=== PATIENT | female | born 1935 | race Caucasian/White ===

== ENCOUNTER 2018-04-09 13:14 | Inpatient (IN) | payer MEDICARE, OTHER ==
[~2018-04-09] VITALS: Ht 165.1 cm; Wt 85.0 kg
[~2018-04-09 13:14] MED LIST: ACET-1008 PO; ATE25T PO; ATOR10TA87 PO; CALC-729 PO; CARCD120C PO; CITA-278 PO; COL100C PO; CYAN50003 PO; DIPH-423 PO; ENOX30SY10 SUBCUT; LEVO25TA7 PO; LORA0.5T PO; MAG355OR PO; MAGN-49 PO; MULT-685 PO; NORCO10T PO; PRED1TAB PO; ZOF4I IV; ZOLP5TAB8 PO; [UNRECOGNIZED DRUG - REMARK] MC
[2018-04-09] MEDS ORDERED: normal saline 1000ML IV soln IVB ONE ×2 (13:30→13:40)
[2018-04-09] MEDS ORDERED: morphine 4 MG/ML inj SYRINge IV PRN (13:40)
[2018-04-09] MEDS ORDERED: ondansetron/PF 4mg/2ml inj IV ONE (13:40)
[2018-04-09 13:46] LABS: BASOPHILS % (AUTO) 0.3 % (0-1); EOSINOPHILS # (AUTO) 0.4 X10'3 (0-0.9); EOSINOPHILS % (AUTO) 4.2 % (0-6); HEMATOCRIT 30.9 % (35.0-45.0); HEMOGLOBIN 9.5 g/dl (12.0-16.0); LYMPHOCYTES # (AUTO) 1.9 X10'3 (1.1-4.8); LYMPHOCYTES % (AUTO) 17.2 % (21-51); MEAN CORPUSCULAR HEMOGLOBIN 24.6 PG (27.0-31.0); MEAN CORPUSCULAR HGB CONC 30.7 % (33.0-36.5); MEAN CORPUSCULAR VOLUME 80.3 FL (78-98); MEAN PLATELET VOLUME 9.3 FL (7.4-10.4); MONOCYTES # (AUTO) 1.2 X10'3 (0-0.9); MONOCYTES % (AUTO) 10.7 % (2-12); NEUTROPHILS # (AUTO) 7.3 X10'3 (1.8-7.7); NEUTROPHILS % (AUTO) 67.6 % (42-75); PLATELET COUNT 242 X10'3 (140-440); RED BLOOD COUNT 3.85 X10'6 (4.20-5.60); RED CELL DISTRIBUTION WIDTH 21.3 % (11.5-14.5); WHITE BLOOD COUNT 10.8 X10'3 (4.5-11.0)
[2018-04-09 14:05] LABS: ALANINE AMINOTRANSFERASE 24 U/L (12-78); ALBUMIN/GLOBULIN RATIO 0.7 (1.1-1.5); ALKALINE PHOSPHATASE 57 IU/L (46-116); ANION GAP 6 (8-16); ASPARTATE AMINO TRANSFERASE 22 U/L (10-37); BILIRUBIN,TOTAL 0.6 MG/DL (0.1-1.0); BLOOD UREA NITROGEN 29 MG/DL (7-18); BUN/CREATININE RATIO 21.8 (6.6-38.0); CALCIUM 8.8 MG/DL (8.5-10.1); CHLORIDE 104 MMOL/L (99-107); CREATININE 1.33 MG/DL (0.40-0.90); GLUCOSE 152 MG/DL (70-104); POTASSIUM 4.4 MMOL/L (3.5-5.1); SODIUM 140 MMOL/L (135-145); TOTAL CARBON DIOXIDE 29.9 MMOL/L (24-32); TOTAL PROTEIN 7.1 G/DL (6.4-8.2); eGFR 38 ML/MIN
[2018-04-09 14:07] LABS: INR 1.2 INR; PARTIAL THROMBOPLASTIN TIME 32 SECONDS (22-32); PROTHROMBIN TIME 12.5 SECONDS (9.0-12.0)
[2018-04-09 14:13] LABS: PLATELET ESTIMATE NORMAL
[2018-04-09 14:14] LABS: ANISOCYTOSIS 3+; HYPOCHROMASIA 1+
[2018-04-09 14:15] LABS: POLYCHROMASIA 1+
[2018-04-09] MEDS ORDERED: HYDROcodone/acetaminophen 10/325mg tab PO ONE (14:30)
[2018-04-09] MEDS ORDERED: acetaminophen 325mg tablet PO PRN ×2 (15:10)
[2018-04-09] MEDS ORDERED: magnesium hydroxide 30ml (MOM) UD suspension PO PRN (15:10)
[2018-04-09] MEDS ORDERED: ondansetron/PF 4mg/2ml inj IV PRN (15:10)
[2018-04-09] MEDS ORDERED: HYDROcodone/acetaminophen 5mg/325mg tablet PO PRN (15:10)
[2018-04-09] MEDS ORDERED: mag hydrox/Alum hydrox/simeth 30ml oral suspension PO PRN (15:10)
[2018-04-09 15:21] LABS: CLARITY,URINE SLIGHTLY CLOUDY (Clear); COLOR,URINE STRAW (Yellow); GLUCOSE, URINE NEGATIVE (Neg); KETONES,URINE NEGATIVE (Neg); LEUKOCYTE ESTERASE ,URINE NEGATIVE (Neg); NITRITES, URINE NEGATIVE (Neg); OCCULT BLOOD,URINE NEGATIVE (Neg); PROTEIN,URINE NEGATIVE (Neg); UROBILINOGEN,URINE 0.2 E.U/dL (0.2-1.0)
[2018-04-09 15:22] LABS: UA COLLECTION TYPE FOLEY CATH
[2018-04-09 15:27] LABS: MUCUS STRANDS NONE SEEN /LPF (Neg); SQUAMOUS EPITHELIAL CELL,UR FEW /LPF (FEW)
[2018-04-09 15:28] LABS: BACTERIA,URINE 4+ /HPF (Neg); RBC,URINE NONE SEEN /HPF (0-2); WBC,URINE 0-4 /HPF (0-4)
[2018-04-09] MEDS ORDERED: AMIO200T40 PO (16:09)
[2018-04-09] MEDS ORDERED: FURO-150 PO (16:20)
[2018-04-09] MEDS ORDERED: RIVA20TA PO (16:20)
[2018-04-09] MEDS ORDERED: LORA10TA7 PO (16:20)
[2018-04-09] MEDS ORDERED: LISI-600 PO (16:20)
[2018-04-09] MEDS ORDERED: METO-395 PO (16:20)
[2018-04-09] MEDS ORDERED: INSU100I31 SQ (16:20)
[2018-04-09] MEDS ORDERED: ROPI0.252 PO (16:20)
[2018-04-09 19:34] VITALS: BP 103/43
[2018-04-09] MEDS: normal saline 1000ml 1,000 ML IV SCH (19:43)
[2018-04-09] MEDS: amiodarone 200mg tablet PO SCH (21:00)
[2018-04-09] MEDS: atorvastatin 10mg tablet PO SCH (21:01)
[2018-04-09] MEDS: ROPINIRole 0.25mg tablet PO SCH (21:02)
[2018-04-09] MEDS: HYDROcodone/acetaminophen 10/325mg tab PO PRN (21:06)
[2018-04-09 22:00] VITALS: BP 110/87
[2018-04-10] MEDS: morphine 2 MG/ML inj. syringe IV PRN ×2 (04:33→11:29)
[2018-04-10] MEDS: normal saline 1000ml 1,000 ML IV SCH ×2 (04:35→12:55)
[2018-04-10 06:00] VITALS: BP 101/57
[2018-04-10 07:31] LABS: BASOPHILS % (AUTO) 0.5 % (0-1); EOSINOPHILS # (AUTO) 0.2 X10'3 (0-0.9); EOSINOPHILS % (AUTO) 2.3 % (0-6); HEMATOCRIT 23.9 % (35.0-45.0); HEMOGLOBIN 7.4 g/dl (12.0-16.0); LYMPHOCYTES # (AUTO) 1.7 X10'3 (1.1-4.8); LYMPHOCYTES % (AUTO) 19.9 % (21-51); MEAN CORPUSCULAR HEMOGLOBIN 24.9 PG (27.0-31.0); MEAN CORPUSCULAR HGB CONC 30.9 % (33.0-36.5); MEAN CORPUSCULAR VOLUME 80.4 FL (78-98); MEAN PLATELET VOLUME 9.8 FL (7.4-10.4); MONOCYTES # (AUTO) 1.1 X10'3 (0-0.9); MONOCYTES % (AUTO) 12.8 % (2-12); NEUTROPHILS # (AUTO) 5.5 X10'3 (1.8-7.7); NEUTROPHILS % (AUTO) 64.5 % (42-75); PLATELET COUNT 188 X10'3 (140-440); RED BLOOD COUNT 2.97 X10'6 (4.20-5.60); RED CELL DISTRIBUTION WIDTH 21.4 % (11.5-14.5); WHITE BLOOD COUNT 8.5 X10'3 (4.5-11.0)
[2018-04-10 07:40] LABS: ALBUMIN 2.6 G/DL (3.4-5.0); ANION GAP 8 (8-16); BLOOD UREA NITROGEN 26 MG/DL (7-18); BUN/CREATININE RATIO 19.8 (6.6-38.0); CALCIUM 8.6 MG/DL (8.5-10.1); CHLORIDE 107 MMOL/L (99-107); CREATININE 1.31 MG/DL (0.40-0.90); GLUCOSE 124 MG/DL (70-104); POTASSIUM 4.5 MMOL/L (3.5-5.1); SODIUM 142 MMOL/L (135-145); eGFR 39 ML/MIN
[2018-04-10 07:49] LABS: ANISOCYTOSIS 3+; HYPOCHROMASIA 1+; PLATELET ESTIMATE NORMAL; POLYCHROMASIA 1+
[2018-04-10] MEDS: lisinopril 5mg tablet PO SCH (08:00)
[2018-04-10] MEDS: loratadine 10mg tablet PO SCH (08:00)
[2018-04-10] MEDS: furosemide 20MG tablet PO SCH (08:00)
[2018-04-10] MEDS: levoTHYROXINE 25mcg tablet PO SCH (08:46)
[2018-04-10] MEDS: metoprolol succinate 25mg (24-HOUR) SR. Tablet PO SCH (08:46)
[2018-04-10] MEDS: citalopram 20mg tablet PO SCH (08:47)
[2018-04-10] MEDS: HYDROcodone/acetaminophen 10/325mg tab PO PRN ×3 (08:47→20:23)
[2018-04-10] MEDS: multivitamins, therapeutics tablet PO SCH (08:47)
[2018-04-10] MEDS: ROPINIRole 0.25mg tablet PO SCH ×3 (08:48→20:22)
[2018-04-10] MEDS: predniSONE 1 mg tablet PO SCH (08:48)
[2018-04-10] MEDS: enoxaparin 40mg/0.4ml syringe SUBCUT SCH (08:49)
[2018-04-10 10:00] VITALS: BP 90/54
[2018-04-10] MEDS: CefTRIAXone/D5W-Rocephin 1gm 50 ML IV SCH (12:56)
[2018-04-10 14:32] LABS: FERRITIN 31 NG/ML (8-252)
[2018-04-10 14:50] LABS: % IRON SATURATION 6 % (11-46); IRON 14 UG/DL (49-151); TOTAL IRON BINDING CAPACITY 246 UG/DL (259-388)
[2018-04-10 18:00] VITALS: BP 107/48
[2018-04-10] MEDS: amiodarone 200mg tablet PO SCH (20:22)
[2018-04-10] MEDS: atorvastatin 10mg tablet PO SCH (20:22)
[2018-04-10 22:00] VITALS: BP 104/40
[2018-04-11] VITALS (24 sets, daily range): BP systolic 71–135; BP diastolic 25–65
[2018-04-11] MEDS: HYDROcodone/acetaminophen 10/325mg tab PO PRN ×2 (02:03→14:26)
[2018-04-11] MEDS ORDERED: normal saline 500ml IV soln 500 ML IV ONE (03:40)
[2018-04-11] MEDS: morphine 2 MG/ML inj. syringe IV PRN (04:18)
[2018-04-11 06:03] LABS: BASOPHILS % (AUTO) 0.4 % (0-1); EOSINOPHILS # (AUTO) 0.2 X10'3 (0-0.9); EOSINOPHILS % (AUTO) 1.7 % (0-6); LYMPHOCYTES # (AUTO) 1.7 X10'3 (1.1-4.8); LYMPHOCYTES % (AUTO) 18.3 % (21-51); MEAN CORPUSCULAR HGB CONC 30.8 % (33.0-36.5); MEAN PLATELET VOLUME 9.8 FL (7.4-10.4); MONOCYTES # (AUTO) 1.6 X10'3 (0-0.9); MONOCYTES % (AUTO) 17.4 % (2-12); NEUTROPHILS # (AUTO) 5.9 X10'3 (1.8-7.7); NEUTROPHILS % (AUTO) 62.2 % (42-75); PLATELET COUNT 175 X10'3 (140-440); RED BLOOD COUNT 2.64 X10'6 (4.20-5.60); RED CELL DISTRIBUTION WIDTH 21.6 % (11.5-14.5); WHITE BLOOD COUNT 9.4 X10'3 (4.5-11.0)
[2018-04-11 06:07] LABS: ALBUMIN 2.4 G/DL (3.4-5.0); ANION GAP 6 (8-16); BLOOD UREA NITROGEN 29 MG/DL (7-18); BUN/CREATININE RATIO 20.4 (6.6-38.0); CALCIUM 7.9 MG/DL (8.5-10.1); CHLORIDE 109 MMOL/L (99-107); CREATININE 1.42 MG/DL (0.40-0.90); GLUCOSE 138 MG/DL (70-104); MAGNESIUM 2.1 MG/DL (1.5-2.4); POTASSIUM 4.4 MMOL/L (3.5-5.1); SODIUM 142 MMOL/L (135-145); TOTAL CARBON DIOXIDE 26.6 MMOL/L (24-32); eGFR 36 ML/MIN
[2018-04-11 06:16] LABS: HEMATOCRIT 21.4 % (35.0-45.0); HEMOGLOBIN 6.6 g/dl (12.0-16.0)
[2018-04-11 07:12] LABS: ANISOCYTOSIS 3+; LARGE PLATELETS FEW; PLATELET ESTIMATE NORMAL
[2018-04-11 07:13] LABS: ELLIPTOCYTES FEW; HYPOCHROMASIA 2+
[2018-04-11] MEDS: levoTHYROXINE 25mcg tablet PO SCH (08:00)
[2018-04-11] MEDS: citalopram 20mg tablet PO SCH (08:00)
[2018-04-11] MEDS: loratadine 10mg tablet PO SCH (08:00)
[2018-04-11] MEDS: lisinopril 5mg tablet PO SCH (08:00)
[2018-04-11] MEDS: predniSONE 1 mg tablet PO SCH (08:00)
[2018-04-11] MEDS: metoprolol succinate 25mg (24-HOUR) SR. Tablet PO SCH (08:00)
[2018-04-11] MEDS: ROPINIRole 0.25mg tablet PO SCH ×3 (08:00→21:00)
[2018-04-11] MEDS: enoxaparin 40mg/0.4ml syringe SUBCUT SCH (08:00)
[2018-04-11] MEDS: furosemide 20MG tablet PO SCH (08:00)
[2018-04-11] MEDS: multivitamins, therapeutics tablet PO SCH (08:00)
[2018-04-11] MEDS: normal saline 1000ml 1,000 ML IV SCH (12:14)
[2018-04-11] MEDS: CefTRIAXone/D5W-Rocephin 1gm 50 ML IV SCH (14:43)
[2018-04-11] MEDS ORDERED: diphenhydrAMINE 25mg capsule PO ONE (16:20)
[2018-04-11] MEDS ORDERED: ceFAZolin 1GM/D5W- ADD-VANTAGE 50 ML IV ONE (17:00)
[2018-04-11] MEDS ORDERED: vancomycin 1,000mg inj ONE (17:40)
[2018-04-11] MEDS ORDERED: ketorolac trometh. 30mg/ml inj. ONE (17:40)
[2018-04-11] MEDS ORDERED: ROPIVAcaine 0.5% (5mg/ml) 30ml vial ONE (17:41)
[2018-04-11] MEDS ORDERED: ringers solution, lacted 1,000 ML IV SCH (17:49)
[2018-04-11] MEDS ORDERED: ondansetron/PF 4mg/2ml inj IV PRN (17:50)
[2018-04-11] MEDS ORDERED: meperidine/PF 25mg/ml syringe IV PRN ×3 (17:50)
[2018-04-11] MEDS ORDERED: proCHLORperazine 10 MG/2 ml inj IV PRN (17:50)
[2018-04-11] MEDS ORDERED: morphine 4 MG/ML inj SYRINge IV PRN ×2 (17:50)
[2018-04-11 18:10] LABS: ISTAT CREATININE 1.2 mg/dL (0.6-1.1); ISTAT HGB 9.2 g/dl (12.0-16.0); ISTAT IONIZED CALCIUM 1.17 mmol/L (1.03-1.32); ISTAT K 4.5 mmol/L (3.5-5.1); POC BUN/CREATININE RATIO 20.8 (6.6-38.0)
[2018-04-11] MEDS ORDERED: phenylephrine 10mg/ml inj. ONE (18:40)
[2018-04-11] MEDS ORDERED: epiNEPHrine 0.1mg/ml 10ml syringe ONE (18:40)
[2018-04-11] MEDS ORDERED: LIDOcaine 1% (10mg/ml) 2ml vial ONE (18:44)
[2018-04-11] MEDS ORDERED: glycopyrrolate 0.2mg/ml inj ONE (18:48)
[2018-04-11] MEDS ORDERED: sevoflurane 250ml liquid IH ONE (18:48)
[2018-04-11] MEDS ORDERED: neostigmine methylsulfate 1 MG/ML 10ml vial ONE (18:48)
[2018-04-11] MEDS ORDERED: dexamethasone sod phosphate 10mg/ml inj ONE (18:48)
[2018-04-11] MEDS ORDERED: ondansetron/PF 4mg/2ml inj ONE (18:48)
[2018-04-11] MEDS ORDERED: fentaNYL/PF 50MCG/1 ML 2ML syringe ONE (19:02)
[2018-04-11] MEDS ORDERED: MIDAZolam 5mg/5ml vial ONE (19:03)
[2018-04-11] MEDS ORDERED: etomidate 2mg/ml inj. ONE (19:31)
[2018-04-11] MEDS ORDERED: rocuronium 10mg/ml inj IV ONE (19:32)
[2018-04-11 20:25] LABS: ISTAT CREATININE 1.1 mg/dL (0.6-1.1); ISTAT HGB 8.2 g/dl (12.0-16.0); ISTAT IONIZED CALCIUM 1.14 mmol/L (1.03-1.32); ISTAT K 4.3 mmol/L (3.5-5.1); POC BUN/CREATININE RATIO 23.6 (6.6-38.0)
[2018-04-11] MEDS: atorvastatin 10mg tablet PO SCH (21:00)
[2018-04-11] MEDS: amiodarone 200mg tablet PO SCH (21:00)
[2018-04-11] MEDS ORDERED: furosemide 40mg/4ml inj ONE (21:51)
[2018-04-11] MEDS ORDERED: propofol 1000mg/100ml bottle 100 ML IV PRN (21:53)
[2018-04-11] MEDS ORDERED: propofol 1000mg/100ml bottle 100 ML IV ONE (21:58)
[2018-04-11 22:31] LABS: ABG BASE EXCESS -4.9 mmol/L (-2.0-3.0); ABG HCO3 22.8 mmol/L (22.0-26.0); ABG OXYGEN SATURATION 94.9 % (95-98); ABG PCO2 (T) 53.8 mmHg (32.0-45.0); ABG PH (T) 7.242 (7.350-7.450); ABG PO2 (T) 82.6 mmHg (83-108); FCOHb 0.3 % (0.5-1.5); FMetHb 0.3 % (0.3-1.12); FO2Hb 94.3 % (94-100); PATIENT TEMPERATURE 36.6; PEEP 5 cm H2O; RESPIRATORY RATE (OBSERVED) 11 b/min; TOTAL HEMOGLOBIN 10.6 G/dl (12.0-16.0)
[2018-04-12] VITALS (27 sets, daily range): BP systolic 119–159; BP diastolic 46–78
[2018-04-12] MEDS: ceFAZolin 1GM/D5W- ADD-VANTAGE 50 ML IV SCH ×2 (00:15→07:36)
[2018-04-12] MEDS: potassium cl 20mEq in 1/2 NS 1,000 ML IV SCH ×4 (00:15→20:56)
[2018-04-12] MEDS: morphine 2 MG/ML inj. syringe IV PRN ×2 (00:26→18:41)
[2018-04-12] MEDS: normal saline 1000ml 1,000 ML IV SCH ×2 (01:45→17:05)
[2018-04-12 03:31] LABS: BASOPHILS % (AUTO) 0 % (0-1); EOSINOPHILS % (AUTO) 0 % (0-6); HEMATOCRIT 31.3 % (35.0-45.0); HEMOGLOBIN 10.2 g/dl (12.0-16.0); LYMPHOCYTES # (AUTO) 0.6 X10'3 (1.1-4.8); LYMPHOCYTES % (AUTO) 7.3 % (21-51); MEAN CORPUSCULAR HEMOGLOBIN 27.3 PG (27.0-31.0); MEAN CORPUSCULAR HGB CONC 32.5 % (33.0-36.5); MEAN CORPUSCULAR VOLUME 84.1 FL (78-98); MEAN PLATELET VOLUME 10.1 FL (7.4-10.4); MONOCYTES # (AUTO) 0.5 X10'3 (0-0.9); MONOCYTES % (AUTO) 5.6 % (2-12); NEUTROPHILS # (AUTO) 7.3 X10'3 (1.8-7.7); NEUTROPHILS % (AUTO) 87.1 % (42-75); PLATELET COUNT 155 X10'3 (140-440); RED BLOOD COUNT 3.72 X10'6 (4.20-5.60); RED CELL DISTRIBUTION WIDTH 18.3 % (11.5-14.5); WHITE BLOOD COUNT 8.4 X10'3 (4.5-11.0)
[2018-04-12 03:57] LABS: ALBUMIN 2.3 G/DL (3.4-5.0); ANION GAP 9 (8-16); BLOOD UREA NITROGEN 27 MG/DL (7-18); BUN/CREATININE RATIO 20.1 (6.6-38.0); CALCIUM 7.9 MG/DL (8.5-10.1); CHLORIDE 107 MMOL/L (99-107); CREATININE 1.34 MG/DL (0.40-0.90); GLUCOSE 190 MG/DL (70-104); PHOSPHORUS 2.9 MG/DL (2.3-4.5); POTASSIUM 4.1 MMOL/L (3.5-5.1); SODIUM 139 MMOL/L (135-145); TOTAL CARBON DIOXIDE 23.3 MMOL/L (24-32); eGFR 38 ML/MIN
[2018-04-12 04:05] LABS: ABG BASE EXCESS -0.5 mmol/L (-2.0-3.0); ABG HCO3 22.2 mmol/L (22.0-26.0); ABG OXYGEN SATURATION 95.1 % (95-98); ABG PH (T) 7.488 (7.350-7.450); ABG PO2 (T) 72.3 mmHg (83-108); FCOHb 0.2 % (0.5-1.5); FMetHb 0.3 % (0.3-1.12); FO2Hb 94.6 % (94-100); PEEP 5 cm H2O; RESPIRATORY RATE 14 b/min; RESPIRATORY RATE (OBSERVED) 18 b/min; TIDAL VOLUME 650 mL; TOTAL HEMOGLOBIN 10.6 G/dl (12.0-16.0)
[2018-04-12] MEDS: CefTRIAXone/D5W-Rocephin 1gm 50 ML IV SCH (07:36)
[2018-04-12] MEDS: loratadine 10mg tablet PO SCH (07:36)
[2018-04-12] MEDS: metoprolol succinate 25mg (24-HOUR) SR. Tablet PO SCH (07:36)
[2018-04-12] MEDS: furosemide 20MG tablet PO SCH (07:36)
[2018-04-12] MEDS: levoTHYROXINE 25mcg tablet PO SCH (07:36)
[2018-04-12] MEDS: multivitamins, therapeutics tablet PO SCH (07:36)
[2018-04-12] MEDS: lisinopril 5mg tablet PO SCH (07:36)
[2018-04-12] MEDS: citalopram 20mg tablet PO SCH (07:36)
[2018-04-12] MEDS: enoxaparin 40mg/0.4ml syringe SUBCUT SCH (07:37)
[2018-04-12] MEDS: predniSONE 1 mg tablet PO SCH (08:03)
[2018-04-12] MEDS: ROPINIRole 0.25mg tablet PO SCH ×3 (08:04→20:47)
[2018-04-12 08:40] LABS: ABG BASE EXCESS -0.7 mmol/L (-2.0-3.0); ABG HCO3 24.3 mmol/L (22.0-26.0); ABG OXYGEN SATURATION 91.9 % (95-98); ABG PCO2 (T) 41.4 mmHg (32.0-45.0); ABG PH (T) 7.386 (7.350-7.450); ABG PO2 (T) 62.2 mmHg (83-108); FCOHb 0.3 % (0.5-1.5); FMetHb 0.3 % (0.3-1.12); FO2Hb 91.3 % (94-100); MINUTE VOLUME 6 L/min; PATIENT TEMPERATURE 36.7; PEEP 5 cm H2O; RESPIRATORY RATE (OBSERVED) 22 b/min; TOTAL HEMOGLOBIN 11.4 G/dl (12.0-16.0)
[2018-04-12 13:36] LABS: ABG BASE EXCESS -1.7 mmol/L (-2.0-3.0); ABG HCO3 22.7 mmol/L (22.0-26.0); ABG OXYGEN SATURATION 95.8 % (95-98); ABG PCO2 (T) 37.1 mmHg (32.0-45.0); ABG PH (T) 7.405 (7.350-7.450); ABG PO2 (T) 81.3 mmHg (83-108); FMetHb 0.3 % (0.3-1.12); FO2Hb 95.5 % (94-100); MINUTE VOLUME 8 L/min; PEEP 5 cm H2O; RESPIRATORY RATE (OBSERVED) 19 b/min; TOTAL HEMOGLOBIN 10.6 G/dl (12.0-16.0)
[2018-04-12] MEDS ORDERED: CADD PCA waste documentation MC PRN (13:40)
[2018-04-12] MEDS ORDERED: naloxone 0.4 mg/ml inj IV PRN (13:40)
[2018-04-12] MEDS: HYDROcodone/acetaminophen 10/325mg tab PO PRN ×2 (18:08→23:16)
[2018-04-12] MEDS ORDERED: morphine 2 MG/ML inj. syringe IV PRN (20:15)
[2018-04-12] MEDS: amiodarone 200mg tablet PO SCH (20:48)
[2018-04-12] MEDS: atorvastatin 10mg tablet PO SCH (20:48)
[2018-04-13] VITALS (17 sets, daily range): BP systolic 86–110; BP diastolic 40–62
[2018-04-13 03:19] LABS: BASOPHILS # (AUTO) 0.1 X10'3 (0-0.2); BASOPHILS % (AUTO) 0.7 % (0-1); EOSINOPHILS % (AUTO) 0.2 % (0-6); HEMATOCRIT 27.7 % (35.0-45.0); HEMOGLOBIN 8.9 g/dl (12.0-16.0); LYMPHOCYTES # (AUTO) 0.8 X10'3 (1.1-4.8); LYMPHOCYTES % (AUTO) 7.7 % (21-51); MEAN CORPUSCULAR HEMOGLOBIN 27.4 PG (27.0-31.0); MEAN CORPUSCULAR HGB CONC 32.2 % (33.0-36.5); MEAN CORPUSCULAR VOLUME 85.3 FL (78-98); MEAN PLATELET VOLUME 9.8 FL (7.4-10.4); MONOCYTES # (AUTO) 1.5 X10'3 (0-0.9); MONOCYTES % (AUTO) 13.9 % (2-12); NEUTROPHILS # (AUTO) 8.2 X10'3 (1.8-7.7); NEUTROPHILS % (AUTO) 77.5 % (42-75); PLATELET COUNT 168 X10'3 (140-440); RED BLOOD COUNT 3.25 X10'6 (4.20-5.60); RED CELL DISTRIBUTION WIDTH 18.7 % (11.5-14.5); WHITE BLOOD COUNT 10.6 X10'3 (4.5-11.0)
[2018-04-13 03:30] LABS: ANION GAP 5 (8-16); BLOOD UREA NITROGEN 26 MG/DL (7-18); BUN/CREATININE RATIO 22.8 (6.6-38.0); CALCIUM 7.6 MG/DL (8.5-10.1); CHLORIDE 107 MMOL/L (99-107); CREATININE 1.14 MG/DL (0.40-0.90); GLUCOSE 147 MG/DL (70-104); PHOSPHORUS 3.1 MG/DL (2.3-4.5); POTASSIUM 4.1 MMOL/L (3.5-5.1); SODIUM 139 MMOL/L (135-145); TOTAL CARBON DIOXIDE 26.6 MMOL/L (24-32); eGFR 46 ML/MIN
[2018-04-13] MEDS: HYDROcodone/acetaminophen 10/325mg tab PO PRN ×2 (04:21→13:51)
[2018-04-13] MEDS: potassium cl 20mEq in 1/2 NS 1,000 ML IV SCH ×2 (05:24→13:24)
[2018-04-13] MEDS ORDERED: furosemide 20 MG/2 ML vial IV ONE (06:05)
[2018-04-13] MEDS: CefTRIAXone/D5W-Rocephin 1gm 50 ML IV SCH (08:24)
[2018-04-13] MEDS: enoxaparin 40mg/0.4ml syringe SUBCUT SCH (08:24)
[2018-04-13] MEDS: furosemide 20MG tablet PO SCH (08:25)
[2018-04-13] MEDS: lisinopril 5mg tablet PO SCH (08:25)
[2018-04-13] MEDS: predniSONE 1 mg tablet PO SCH (08:25)
[2018-04-13] MEDS: ROPINIRole 0.25mg tablet PO SCH ×3 (08:25→20:33)
[2018-04-13] MEDS: multivitamins, therapeutics tablet PO SCH (08:25)
[2018-04-13] MEDS: levoTHYROXINE 25mcg tablet PO SCH (08:25)
[2018-04-13] MEDS: loratadine 10mg tablet PO SCH (08:25)
[2018-04-13] MEDS: metoprolol succinate 25mg (24-HOUR) SR. Tablet PO SCH (08:25)
[2018-04-13] MEDS: citalopram 20mg tablet PO SCH (08:25)
[2018-04-13] MEDS ORDERED: albumin (human) 25% 100ml IV 100 ML IV ONE (13:25)
[2018-04-13] MEDS: normal saline 1000ml 1,000 ML IV SCH (13:44)
[2018-04-13] MEDS: amiodarone 200mg tablet PO SCH (20:33)
[2018-04-13] MEDS: atorvastatin 10mg tablet PO SCH (20:33)
[2018-04-13] MEDS ORDERED: methylPREDNISolone sod succ 125mg/2ml vial IV ONE (21:25)
[2018-04-13] MEDS: albuterol 2.5 MG/3 ML nebule NEB PRN (22:19)
[2018-04-14] VITALS (7 sets, daily range): BP systolic 105–142; BP diastolic 54–81
[2018-04-14 03:12] LABS: CLARITY,URINE CLEAR (Clear); COLOR,URINE YELLOW (Yellow); GLUCOSE, URINE 100 mg/dl (Neg); KETONES,URINE NEGATIVE (Neg); LEUKOCYTE ESTERASE ,URINE NEGATIVE (Neg); NITRITES, URINE NEGATIVE (Neg); OCCULT BLOOD,URINE MODERATE (Neg); PH,URINE 5.5 (4.8-8.0); PROTEIN,URINE TRACE mg/dl (Neg); UROBILINOGEN,URINE 0.2 E.U/dL (0.2-1.0)
[2018-04-14 03:19] LABS: UA COLLECTION TYPE CLN CATCH MIDSTREAM
[2018-04-14 03:20] LABS: BACTERIA,URINE FEW /HPF (Neg); RBC,URINE 0-2 /HPF (0-2); SQUAMOUS EPITHELIAL CELL,UR FEW /LPF (FEW); WBC,URINE 0-4 /HPF (0-4)
[2018-04-14] MEDS: albuterol 2.5 MG/3 ML nebule NEB PRN ×2 (03:57→16:53)
[2018-04-14] MEDS ORDERED: furosemide 20 MG/2 ML vial IV ONE (04:20)
[2018-04-14 05:43] LABS: BASOPHILS % (AUTO) 0.1 % (0-1); EOSINOPHILS # (AUTO) 0.1 X10'3 (0-0.9); EOSINOPHILS % (AUTO) 1.1 % (0-6); HEMATOCRIT 29.5 % (35.0-45.0); HEMOGLOBIN 9.3 g/dl (12.0-16.0); LYMPHOCYTES # (AUTO) 0.4 X10'3 (1.1-4.8); LYMPHOCYTES % (AUTO) 4.4 % (21-51); MEAN CORPUSCULAR HGB CONC 31.6 % (33.0-36.5); MEAN CORPUSCULAR VOLUME 85.7 FL (78-98); MEAN PLATELET VOLUME 9.5 FL (7.4-10.4); MONOCYTES # (AUTO) 0.5 X10'3 (0-0.9); MONOCYTES % (AUTO) 5.7 % (2-12); NEUTROPHILS # (AUTO) 8.3 X10'3 (1.8-7.7); NEUTROPHILS % (AUTO) 88.7 % (42-75); PLATELET COUNT 174 X10'3 (140-440); RED BLOOD COUNT 3.44 X10'6 (4.20-5.60); RED CELL DISTRIBUTION WIDTH 19.4 % (11.5-14.5); WHITE BLOOD COUNT 9.4 X10'3 (4.5-11.0)
[2018-04-14 05:46] LABS: ABG BASE EXCESS 1.2 mmol/L (-2.0-3.0); ABG HCO3 26.6 mmol/L (22.0-26.0); ABG OXYGEN SATURATION 89.8 % (95-98); ABG PCO2 (T) 45.5 mmHg (32.0-45.0); ABG PH (T) 7.384 (7.350-7.450); ABG PO2 (T) 57.7 mmHg (83-108); FLOW 15 L/min; FMetHb 0.3 % (0.3-1.12); FO2Hb 88.6 % (94-100); RESPIRATORY RATE (OBSERVED) 20 b/min; TOTAL HEMOGLOBIN 10.1 G/dl (12.0-16.0)
[2018-04-14] MEDS ORDERED: piperacillin/tazo 3.375gm/50ml 50 ML IV SCH (05:50)
[2018-04-14 06:04] LABS: ALBUMIN 2.4 G/DL (3.4-5.0); ANION GAP 8 (8-16); BLOOD UREA NITROGEN 28 MG/DL (7-18); BUN/CREATININE RATIO 22.4 (6.6-38.0); CALCIUM 8.6 MG/DL (8.5-10.1); CHLORIDE 104 MMOL/L (99-107); CREATININE 1.25 MG/DL (0.40-0.90); GLUCOSE 247 MG/DL (70-104); MAGNESIUM 2.1 MG/DL (1.5-2.4); PHOSPHORUS 3.4 MG/DL (2.3-4.5); POTASSIUM 3.9 MMOL/L (3.5-5.1); SODIUM 138 MMOL/L (135-145); TOTAL CARBON DIOXIDE 26.5 MMOL/L (24-32); eGFR 41 ML/MIN
[2018-04-14] MEDS: ipratropium/albuterol 3ml nebule NEB SCH ×4 (07:00→23:03)
[2018-04-14 07:16] LABS: TROPONIN I 0.13 NG/ML (0.0-0.05)
[2018-04-14] MEDS: furosemide 40mg/4ml inj IV SCH ×3 (07:44→19:44)
[2018-04-14] MEDS: metoprolol succinate 25mg (24-HOUR) SR. Tablet PO SCH (07:45)
[2018-04-14] MEDS: citalopram 20mg tablet PO SCH (07:45)
[2018-04-14] MEDS: methylPREDNISolone sod succ/PF 40mg inj. IV SCH ×4 (07:45→19:44)
[2018-04-14] MEDS: multivitamins, therapeutics tablet PO SCH (07:46)
[2018-04-14] MEDS: levoTHYROXINE 25mcg tablet PO SCH (07:47)
[2018-04-14] MEDS: lisinopril 5mg tablet PO SCH (07:47)
[2018-04-14] MEDS: HYDROcodone/acetaminophen 10/325mg tab PO PRN ×2 (07:47→17:47)
[2018-04-14] MEDS: piperacillin/tazo 3.375gm/50ml 50 ML IV SCH ×4 (07:47→23:59)
[2018-04-14] MEDS: loratadine 10mg tablet PO SCH (07:47)
[2018-04-14] MEDS: CefTRIAXone/D5W-Rocephin 1gm 50 ML IV SCH (07:47)
[2018-04-14] MEDS: furosemide 20MG tablet PO SCH (08:00)
[2018-04-14] MEDS: predniSONE 1 mg tablet PO SCH (08:00)
[2018-04-14] MEDS: enoxaparin 40mg/0.4ml syringe SUBCUT SCH (08:00)
[2018-04-14] MEDS: ROPINIRole 0.25mg tablet PO SCH ×3 (08:00→20:08)
[2018-04-14 08:41] LABS: ABG BASE EXCESS -0.8 mmol/L (-2.0-3.0); ABG HCO3 24.5 mmol/L (22.0-26.0); ABG OXYGEN SATURATION 97.5 % (95-98); ABG PCO2 (T) 42.9 mmHg (32.0-45.0); ABG PH (T) 7.374 (7.350-7.450); ABG PO2 (T) 105.5 mmHg (83-108); ALLEN'S TEST Positive; FCOHb 0.9 % (0.5-1.5); FO2Hb 96.6 % (94-100); MINUTE VOLUME 17 L/min; PEEP 7 cm H2O; RESPIRATORY RATE 12 b/min; RESPIRATORY RATE (OBSERVED) 19 b/min; TIDAL VOLUME 569 mL; TOTAL HEMOGLOBIN 12.2 G/dl (12.0-16.0)
[2018-04-14] MEDS ORDERED: acetylcysteine 200 MG/ml 4ml vial PO ONE (15:25)
[2018-04-14] MEDS ORDERED: sodium bicarbonate (8.4%) inj. 100 MEQ in dextrose 5%-water 1,000 ML IV SCH (15:25)
[2018-04-14] MEDS: levoFLOXACIN-Levaquin 750MG/D5 150 ML IV SCH (17:21)
[2018-04-14] MEDS: vancomycin inj 1,250 MG in normal saline 250ml IV soln 250 ML IV SCH (19:43)
[2018-04-14] MEDS: lactobacillus rhamnosus 10,000 MMU CELLS/CAPSULE PO SCH (19:44)
[2018-04-14] MEDS: morphine 2 MG/ML inj. syringe IV PRN (20:08)
[2018-04-14] MEDS: atorvastatin 10mg tablet PO SCH (20:10)
[2018-04-14] MEDS: amiodarone 200mg tablet PO SCH (20:10)
[2018-04-14] MEDS: acetylcysteine 200 MG/ml 4ml vial PO SCH (23:58)
[2018-04-14] MEDS: metroNIDAZOLE-Flagyl 500mg/NS 100 ML IV SCH (23:59)
[2018-04-15] MEDS: morphine 2 MG/ML inj. syringe IV PRN ×2 (00:03→22:17)
[2018-04-15] MEDS: methylPREDNISolone sod succ/PF 40mg inj. IV SCH ×4 (02:36→23:46)
[2018-04-15] MEDS: ipratropium/albuterol 3ml nebule NEB SCH ×6 (02:55→23:23)
[2018-04-15 03:00] VITALS: BP 124/64
[2018-04-15 05:54] LABS: BASOPHILS % (AUTO) 0.1 % (0-1); EOSINOPHILS # (AUTO) 0.1 X10'3 (0-0.9); EOSINOPHILS % (AUTO) 0.7 % (0-6); HEMATOCRIT 28.1 % (35.0-45.0); HEMOGLOBIN 8.9 g/dl (12.0-16.0); LYMPHOCYTES # (AUTO) 0.4 X10'3 (1.1-4.8); LYMPHOCYTES % (AUTO) 3.2 % (21-51); MEAN CORPUSCULAR HEMOGLOBIN 27.1 PG (27.0-31.0); MEAN CORPUSCULAR HGB CONC 31.6 % (33.0-36.5); MEAN CORPUSCULAR VOLUME 85.5 FL (78-98); MONOCYTES # (AUTO) 0.8 X10'3 (0-0.9); MONOCYTES % (AUTO) 6.9 % (2-12); NEUTROPHILS # (AUTO) 10.1 X10'3 (1.8-7.7); NEUTROPHILS % (AUTO) 89.1 % (42-75); PLATELET COUNT 193 X10'3 (140-440); RED BLOOD COUNT 3.28 X10'6 (4.20-5.60); RED CELL DISTRIBUTION WIDTH 19.2 % (11.5-14.5); WHITE BLOOD COUNT 11.3 X10'3 (4.5-11.0)
[2018-04-15 06:00] VITALS: BP 114/65
[2018-04-15 06:43] LABS: ALANINE AMINOTRANSFERASE 221 U/L (12-78); ALBUMIN 2.2 G/DL (3.4-5.0); ALBUMIN/GLOBULIN RATIO 0.5 (1.1-1.5); ALKALINE PHOSPHATASE 68 IU/L (46-116); ANION GAP 10 (8-16); ASPARTATE AMINO TRANSFERASE 259 U/L (10-37); BILIRUBIN,TOTAL 1.7 MG/DL (0.1-1.0); BLOOD UREA NITROGEN 34 MG/DL (7-18); CALCIUM 7.8 MG/DL (8.5-10.1); CHLORIDE 102 MMOL/L (99-107); CREATININE 1.31 MG/DL (0.40-0.90); GLUCOSE 225 MG/DL (70-104); MAGNESIUM 1.9 MG/DL (1.5-2.4); PHOSPHORUS 2.6 MG/DL (2.3-4.5); SODIUM 143 MMOL/L (135-145); TOTAL CARBON DIOXIDE 31.5 MMOL/L (24-32); TOTAL PROTEIN 6.3 G/DL (6.4-8.2); eGFR 39 ML/MIN
[2018-04-15 07:03] LABS: POTASSIUM 2.9 MMOL/L (3.5-5.1)
[2018-04-15] MEDS: piperacillin/tazo 3.375gm/50ml 50 ML IV SCH ×4 (07:39→23:46)
[2018-04-15] MEDS ORDERED: potassium Cl 40MEQ/NS 500ml 500 ML IV PRN (07:55)
[2018-04-15] MEDS ORDERED: potassium Cl 20 mEq SR tablet PO PRN (07:55)
[2018-04-15] MEDS ORDERED: magnesium Cl slow-release 64mg tablet PO PRN (07:55)
[2018-04-15] MEDS ORDERED: magnesium 4gm in 100ml NS 100 ML IV PRN (07:55)
[2018-04-15] MEDS ORDERED: magnesium 2GM in 50ml NS 50 ML IV PRN (07:55)
[2018-04-15] MEDS: loratadine 10mg tablet PO SCH (08:39)
[2018-04-15] MEDS: lisinopril 5mg tablet PO SCH (08:39)
[2018-04-15] MEDS: metroNIDAZOLE-Flagyl 500mg/NS 100 ML IV SCH (08:42)
[2018-04-15] MEDS: furosemide 40mg/4ml inj IV SCH ×2 (08:42→19:35)
[2018-04-15] MEDS: lactobacillus rhamnosus 10,000 MMU CELLS/CAPSULE PO SCH ×2 (08:47→19:35)
[2018-04-15] MEDS: levoTHYROXINE 25mcg tablet PO SCH (08:48)
[2018-04-15] MEDS: multivitamins, therapeutics tablet PO SCH (08:51)
[2018-04-15] MEDS: metoprolol succinate 25mg (24-HOUR) SR. Tablet PO SCH (08:51)
[2018-04-15] MEDS: potassium Cl 20 mEq SR tablet PO PRN ×3 (08:52→17:35)
[2018-04-15] MEDS: ROPINIRole 0.25mg tablet PO SCH ×3 (08:58→19:35)
[2018-04-15] MEDS: acetylcysteine 200 MG/ml 4ml vial PO SCH ×2 (09:00→19:35)
[2018-04-15] MEDS: rivaroxaban 20mg tablet PO SCH (09:17)
[2018-04-15] MEDS: citalopram 20mg tablet PO SCH (09:33)
[2018-04-15 11:00] VITALS: BP 114/80
[2018-04-15] MEDS: levoFLOXACIN-Levaquin 750MG/D5 150 ML IV SCH (11:00)
[2018-04-15] MEDS ORDERED: iohexol 350MG/ML 100ml bottle IV ONE (11:15)
[2018-04-15 11:35] LABS: TROPONIN I 0.13 NG/ML (0.0-0.05)
[2018-04-15] MEDS: HYDROcodone/acetaminophen 10/325mg tab PO PRN (14:32)
[2018-04-15 15:00] VITALS: BP 113/64
[2018-04-15] MEDS: vancomycin inj 1,250 MG in normal saline 250ml IV soln 250 ML IV SCH (16:05)
[2018-04-15 18:00] VITALS: BP 113/91
[2018-04-15] MEDS: Protein Shake (high protein) 240ml (8oz) cup PO SCH (18:49)
[2018-04-15] MEDS: amiodarone 200mg tablet PO SCH (19:35)
[2018-04-15] MEDS: atorvastatin 10mg tablet PO SCH (19:35)
[2018-04-15] MEDS: LORazepam 2 mg/ml vial IV PRN (20:51)
[2018-04-15 22:15] LABS: ABG BASE EXCESS 8.2 mmol/L (-2.0-3.0); ABG HCO3 32.3 mmol/L (22.0-26.0); ABG OXYGEN SATURATION 99.2 % (95-98); ABG PCO2 (T) 43.6 mmHg (32.0-45.0); ABG PH (T) 7.488 (7.350-7.450); ALLEN'S TEST Positive; FCOHb 0.7 % (0.5-1.5); FO2Hb 98.5 % (94-100); PATIENT TEMPERATURE 37.5; RESPIRATORY RATE 12 b/min; RESPIRATORY RATE (OBSERVED) 23 b/min; TOTAL HEMOGLOBIN 10.6 G/dl (12.0-16.0)
[2018-04-15 22:15] LABS: BASOPHILS # (AUTO) 0.1 X10'3 (0-0.2); BASOPHILS % (AUTO) 0.7 % (0-1); EOSINOPHILS # (AUTO) 0.1 X10'3 (0-0.9); EOSINOPHILS % (AUTO) 0.8 % (0-6); HEMATOCRIT 30.7 % (35.0-45.0); HEMOGLOBIN 9.6 g/dl (12.0-16.0); LYMPHOCYTES # (AUTO) 0.3 X10'3 (1.1-4.8); LYMPHOCYTES % (AUTO) 2.5 % (21-51); MEAN CORPUSCULAR HEMOGLOBIN 26.9 PG (27.0-31.0); MEAN CORPUSCULAR HGB CONC 31.5 % (33.0-36.5); MEAN CORPUSCULAR VOLUME 85.5 FL (78-98); MEAN PLATELET VOLUME 9.7 FL (7.4-10.4); MONOCYTES % (AUTO) 7.4 % (2-12); NEUTROPHILS # (AUTO) 11.5 X10'3 (1.8-7.7); NEUTROPHILS % (AUTO) 88.6 % (42-75); PLATELET COUNT 240 X10'3 (140-440); RED BLOOD COUNT 3.59 X10'6 (4.20-5.60); RED CELL DISTRIBUTION WIDTH 19.6 % (11.5-14.5); WHITE BLOOD COUNT 12.9 X10'3 (4.5-11.0)
[2018-04-15 22:31] LABS: ALBUMIN 2.4 G/DL (3.4-5.0); ANION GAP 10 (8-16); BLOOD UREA NITROGEN 36 MG/DL (7-18); BUN/CREATININE RATIO 23.4 (6.6-38.0); CALCIUM 8.1 MG/DL (8.5-10.1); CHLORIDE 101 MMOL/L (99-107); CREATININE 1.54 MG/DL (0.40-0.90); GLUCOSE 216 MG/DL (70-104); MAGNESIUM 1.9 MG/DL (1.5-2.4); PHOSPHORUS 2.6 MG/DL (2.3-4.5); POTASSIUM 3.1 MMOL/L (3.5-5.1); SODIUM 145 MMOL/L (135-145); TOTAL CARBON DIOXIDE 34.3 MMOL/L (24-32); eGFR 32 ML/MIN
[2018-04-16] MEDS: LORazepam 2 mg/ml vial IV PRN ×3 (00:49→17:36)
[2018-04-16] MEDS: morphine 2 MG/ML inj. syringe IV PRN ×2 (01:46→23:01)
[2018-04-16 02:45] VITALS: BP 101/50
[2018-04-16] MEDS: ipratropium/albuterol 3ml nebule NEB SCH ×6 (03:30→23:06)
[2018-04-16] MEDS: piperacillin/tazo 3.375gm/50ml 50 ML IV SCH (05:12)
[2018-04-16 05:55] LABS: BASOPHILS % (AUTO) 0 % (0-1); EOSINOPHILS # (AUTO) 0.2 X10'3 (0-0.9); EOSINOPHILS % (AUTO) 1.4 % (0-6); HEMATOCRIT 27.3 % (35.0-45.0); HEMOGLOBIN 8.7 g/dl (12.0-16.0); LYMPHOCYTES # (AUTO) 0.4 X10'3 (1.1-4.8); LYMPHOCYTES % (AUTO) 3.4 % (21-51); MEAN CORPUSCULAR HEMOGLOBIN 27.3 PG (27.0-31.0); MEAN CORPUSCULAR VOLUME 85.2 FL (78-98); MEAN PLATELET VOLUME 9.9 FL (7.4-10.4); MONOCYTES # (AUTO) 0.8 X10'3 (0-0.9); MONOCYTES % (AUTO) 6.9 % (2-12); NEUTROPHILS # (AUTO) 10.7 X10'3 (1.8-7.7); NEUTROPHILS % (AUTO) 88.3 % (42-75); PLATELET COUNT 228 X10'3 (140-440); RED CELL DISTRIBUTION WIDTH 19.8 % (11.5-14.5); WHITE BLOOD COUNT 12.1 X10'3 (4.5-11.0)
[2018-04-16 06:00] VITALS: BP 113/51
[2018-04-16 06:09] LABS: ALANINE AMINOTRANSFERASE 294 U/L (12-78); ALBUMIN 2.2 G/DL (3.4-5.0); ALBUMIN/GLOBULIN RATIO 0.5 (1.1-1.5); ALKALINE PHOSPHATASE 67 IU/L (46-116); ANION GAP 9 (8-16); ASPARTATE AMINO TRANSFERASE 285 U/L (10-37); BLOOD UREA NITROGEN 38 MG/DL (7-18); BUN/CREATININE RATIO 26.2 (6.6-38.0); CALCIUM 7.7 MG/DL (8.5-10.1); CHLORIDE 105 MMOL/L (99-107); CREATININE 1.45 MG/DL (0.40-0.90); GLUCOSE 212 MG/DL (70-104); MAGNESIUM 2.1 MG/DL (1.5-2.4); PHOSPHORUS 2.5 MG/DL (2.3-4.5); POTASSIUM 3.9 MMOL/L (3.5-5.1); SODIUM 147 MMOL/L (135-145); TOTAL CARBON DIOXIDE 33.4 MMOL/L (24-32); TOTAL PROTEIN 6.3 G/DL (6.4-8.2); eGFR 35 ML/MIN
[2018-04-16] MEDS: Protein Shake (high protein) 240ml (8oz) cup PO SCH ×3 (08:00→20:52)
[2018-04-16] MEDS: lisinopril 5mg tablet PO SCH (09:27)
[2018-04-16] MEDS: loratadine 10mg tablet PO SCH (09:27)
[2018-04-16] MEDS: levoTHYROXINE 25mcg tablet PO SCH (09:27)
[2018-04-16] MEDS: rivaroxaban 20mg tablet PO SCH (09:27)
[2018-04-16] MEDS: multivitamins, therapeutics tablet PO SCH (09:28)
[2018-04-16] MEDS: ROPINIRole 0.25mg tablet PO SCH ×3 (09:28→21:00)
[2018-04-16] MEDS: methylPREDNISolone sod succ/PF 40mg inj. IV SCH ×2 (09:28→15:53)
[2018-04-16] MEDS: lactobacillus rhamnosus 10,000 MMU CELLS/CAPSULE PO SCH ×2 (09:28→20:00)
[2018-04-16] MEDS: metoprolol succinate 25mg (24-HOUR) SR. Tablet PO SCH (09:28)
[2018-04-16] MEDS: furosemide 40mg/4ml inj IV SCH ×2 (09:29→20:38)
[2018-04-16] MEDS: citalopram 20mg tablet PO SCH (09:29)
[2018-04-16] MEDS: acetylcysteine 200 MG/ml 4ml vial PO SCH ×2 (09:30→20:00)
[2018-04-16 11:00] VITALS: BP 99/67
[2018-04-16 15:00] VITALS: BP 113/50
[2018-04-16] MEDS: metroNIDAZOLE-Flagyl 500mg/NS 100 ML IV SCH (15:44)
[2018-04-16] MEDS ORDERED: meclizine 12.5mg tablet PO PRN (16:30)
[2018-04-16] MEDS: vancomycin inj 1,250 MG in normal saline 250ml IV soln 250 ML IV SCH (17:07)
[2018-04-16 19:00] VITALS: BP 103/55
[2018-04-16 23:00] VITALS: BP 125/61
[2018-04-17] MEDS: metroNIDAZOLE-Flagyl 500mg/NS 100 ML IV SCH ×2 (00:22→07:44)
[2018-04-17] MEDS: LORazepam 2 mg/ml vial IV PRN (00:22)
[2018-04-17] MEDS: methylPREDNISolone sod succ/PF 40mg inj. IV SCH ×3 (00:22→16:28)
[2018-04-17 03:00] VITALS: BP 113/66
[2018-04-17] MEDS: ipratropium/albuterol 3ml nebule NEB SCH ×6 (03:15→22:38)
[2018-04-17 05:03] LABS: BASOPHILS % (AUTO) 0 % (0-1); EOSINOPHILS % (AUTO) 0 % (0-6); HEMATOCRIT 25.3 % (35.0-45.0); HEMOGLOBIN 8.1 g/dl (12.0-16.0); LYMPHOCYTES # (AUTO) 0.4 X10'3 (1.1-4.8); MEAN CORPUSCULAR HEMOGLOBIN 27.2 PG (27.0-31.0); MEAN CORPUSCULAR VOLUME 85.1 FL (78-98); MEAN PLATELET VOLUME 9.6 FL (7.4-10.4); MONOCYTES # (AUTO) 0.8 X10'3 (0-0.9); MONOCYTES % (AUTO) 6.1 % (2-12); NEUTROPHILS # (AUTO) 11.3 X10'3 (1.8-7.7); NEUTROPHILS % (AUTO) 90.9 % (42-75); PLATELET COUNT 231 X10'3 (140-440); RED BLOOD COUNT 2.97 X10'6 (4.20-5.60); RED CELL DISTRIBUTION WIDTH 20.1 % (11.5-14.5); WHITE BLOOD COUNT 12.4 X10'3 (4.5-11.0)
[2018-04-17 05:15] LABS: ALANINE AMINOTRANSFERASE 238 U/L (12-78); ALBUMIN 2.1 G/DL (3.4-5.0); ALBUMIN/GLOBULIN RATIO 0.5 (1.1-1.5); ALKALINE PHOSPHATASE 75 IU/L (46-116); ANION GAP 5 (8-16); ASPARTATE AMINO TRANSFERASE 146 U/L (10-37); BILIRUBIN,TOTAL 1.7 MG/DL (0.1-1.0); BLOOD UREA NITROGEN 42 MG/DL (7-18); BUN/CREATININE RATIO 29.6 (6.6-38.0); CALCIUM 7.5 MG/DL (8.5-10.1); CHLORIDE 103 MMOL/L (99-107); CREATININE 1.42 MG/DL (0.40-0.90); GLUCOSE 246 MG/DL (70-104); MAGNESIUM 2.1 MG/DL (1.5-2.4); PHOSPHORUS 3.1 MG/DL (2.3-4.5); SODIUM 146 MMOL/L (135-145); TOTAL CARBON DIOXIDE 38.2 MMOL/L (24-32); eGFR 36 ML/MIN
[2018-04-17] MEDS: potassium Cl 40MEQ/NS 500ml 500 ML IV PRN ×2 (05:39→10:31)
[2018-04-17 06:55] LABS: ANISOCYTOSIS 2+; HYPOCHROMASIA 2+; PLATELET ESTIMATE NORMAL; TARGET CELLS 1+
[2018-04-17 07:00] VITALS: BP 118/52
[2018-04-17] MEDS: furosemide 40mg/4ml inj IV SCH ×2 (07:53→20:05)
[2018-04-17] MEDS: Protein Shake (high protein) 240ml (8oz) cup PO SCH ×3 (08:00→18:07)
[2018-04-17] MEDS ORDERED: levoFLOXACIN-Levaquin 750MG/D5 150 ML IV SCH (08:00)
[2018-04-17] MEDS: multivitamins, therapeutics tablet PO SCH (08:28)
[2018-04-17] MEDS: lisinopril 5mg tablet PO SCH (08:28)
[2018-04-17] MEDS: ROPINIRole 0.25mg tablet PO SCH ×3 (08:28→20:04)
[2018-04-17] MEDS: loratadine 10mg tablet PO SCH (08:28)
[2018-04-17] MEDS: levoTHYROXINE 25mcg tablet PO SCH (08:28)
[2018-04-17] MEDS: lactobacillus rhamnosus 10,000 MMU CELLS/CAPSULE PO SCH ×2 (08:29→20:04)
[2018-04-17] MEDS: acetylcysteine 200 MG/ml 4ml vial PO SCH (08:29)
[2018-04-17] MEDS: citalopram 20mg tablet PO SCH (08:29)
[2018-04-17] MEDS: metoprolol succinate 25mg (24-HOUR) SR. Tablet PO SCH (08:30)
[2018-04-17] MEDS: rivaroxaban 20mg tablet PO SCH (08:32)
[2018-04-17 11:00] VITALS: BP 122/56
[2018-04-17] MEDS: potassium Cl 20 mEq SR tablet PO SCH ×2 (12:19→17:34)
[2018-04-17] MEDS: pantoprazole 40mg Tablet.DR PO SCH (12:19)
[2018-04-17 15:00] VITALS: BP 121/70
[2018-04-17] MEDS ORDERED: VANCOMYCIN LEVEL IV ONE (15:30)
[2018-04-17 19:00] VITALS: BP 110/57
[2018-04-17 23:00] VITALS: BP 109/67
[2018-04-18] MEDS: methylPREDNISolone sod succ/PF 40mg inj. IV SCH ×2 (00:11→07:42)
[2018-04-18 03:00] VITALS: BP 121/56
[2018-04-18] MEDS: ipratropium/albuterol 3ml nebule NEB SCH ×4 (03:13→14:48)
[2018-04-18 04:55] LABS: BASOPHILS % (AUTO) 0.1 % (0-1); EOSINOPHILS # (AUTO) 0.2 X10'3 (0-0.9); EOSINOPHILS % (AUTO) 1.6 % (0-6); HEMATOCRIT 26.1 % (35.0-45.0); HEMOGLOBIN 8.2 g/dl (12.0-16.0); LYMPHOCYTES # (AUTO) 0.3 X10'3 (1.1-4.8); LYMPHOCYTES % (AUTO) 2.5 % (21-51); MEAN CORPUSCULAR HEMOGLOBIN 26.9 PG (27.0-31.0); MEAN CORPUSCULAR HGB CONC 31.3 % (33.0-36.5); MEAN CORPUSCULAR VOLUME 85.9 FL (78-98); MEAN PLATELET VOLUME 9.8 FL (7.4-10.4); MONOCYTES # (AUTO) 0.7 X10'3 (0-0.9); MONOCYTES % (AUTO) 5.3 % (2-12); NEUTROPHILS # (AUTO) 11.3 X10'3 (1.8-7.7); NEUTROPHILS % (AUTO) 90.5 % (42-75); PLATELET COUNT 262 X10'3 (140-440); RED BLOOD COUNT 3.03 X10'6 (4.20-5.60); RED CELL DISTRIBUTION WIDTH 19.9 % (11.5-14.5); WHITE BLOOD COUNT 12.5 X10'3 (4.5-11.0)
[2018-04-18 05:14] LABS: ALANINE AMINOTRANSFERASE 202 U/L (12-78); ALBUMIN 2.2 G/DL (3.4-5.0); ALBUMIN/GLOBULIN RATIO 0.6 (1.1-1.5); ALKALINE PHOSPHATASE 86 IU/L (46-116); ANION GAP 5 (8-16); ASPARTATE AMINO TRANSFERASE 78 U/L (10-37); BILIRUBIN,TOTAL 1.4 MG/DL (0.1-1.0); BLOOD UREA NITROGEN 43 MG/DL (7-18); BUN/CREATININE RATIO 32.6 (6.6-38.0); CHLORIDE 105 MMOL/L (99-107); CREATININE 1.32 MG/DL (0.40-0.90); GLUCOSE 272 MG/DL (70-104); MAGNESIUM 2.2 MG/DL (1.5-2.4); PHOSPHORUS 2.7 MG/DL (2.3-4.5); SODIUM 146 MMOL/L (135-145); TOTAL CARBON DIOXIDE 36.4 MMOL/L (24-32); TOTAL PROTEIN 6.1 G/DL (6.4-8.2); eGFR 39 ML/MIN
[2018-04-18 07:00] VITALS: BP 111/66
[2018-04-18] MEDS: metoprolol succinate 25mg (24-HOUR) SR. Tablet PO SCH (07:39)
[2018-04-18] MEDS: lisinopril 5mg tablet PO SCH (07:40)
[2018-04-18] MEDS: loratadine 10mg tablet PO SCH (07:40)
[2018-04-18] MEDS: lactobacillus rhamnosus 10,000 MMU CELLS/CAPSULE PO SCH (07:41)
[2018-04-18] MEDS: multivitamins, therapeutics tablet PO SCH (07:41)
[2018-04-18] MEDS: citalopram 20mg tablet PO SCH (07:41)
[2018-04-18] MEDS: pantoprazole 40mg Tablet.DR PO SCH (07:41)
[2018-04-18] MEDS: levoTHYROXINE 25mcg tablet PO SCH (07:41)
[2018-04-18] MEDS: rivaroxaban 20mg tablet PO SCH (07:42)
[2018-04-18] MEDS: furosemide 40mg/4ml inj IV SCH (07:42)
[2018-04-18] MEDS: potassium Cl 20 mEq SR tablet PO SCH (07:42)
[2018-04-18] MEDS: Protein Shake (high protein) 240ml (8oz) cup PO SCH ×2 (07:46→13:00)
[2018-04-18] MEDS: ROPINIRole 0.25mg tablet PO SCH ×2 (08:02→14:46)
[2018-04-18 11:00] VITALS: BP 123/97
[2018-04-19] MEDS ORDERED: levoFLOXACIN 750MG TABLET PO SCH (11:00)
== END 2018-04-18 15:39 | DRG 492 ==
LOC: ER 13:15 → ED HOLD 15:06 → ORTHO 4S 19:02 → CICU 2S 04-11 22:40 → ORTHO 4S 04-13 13:07 → PCU 3S 04-14 05:50
PROVIDERS: ADMIT Internal Medicine; ATTEND Internal Medicine
PROC: 2W3BX1Z Immobilization of Left Upper Arm using Splint (ICD-10-PCS; 2018-04-09)
PROC: 5A1935Z Respiratory Ventilation, Less than 24 Consecutive Hours (ICD-10-PCS; 2018-04-11)
PROC: 30233N1 Transfusion of Nonautologous Red Blood Cells into Peripheral Vein, Percutaneous Approach (ICD-10-PCS; 2018-04-11)
PROC: 3E0T3BZ Introduction of Anesthetic Agent into Peripheral Nerves and Plexi, Percutaneous Approach (ICD-10-PCS; 2018-04-11)
PROC: 0PSD04Z Reposition Left Humeral Head with Internal Fixation Device, Open Approach (ICD-10-PCS; principal; 2018-04-11 18:48)
PROC: 5A09457 Assistance with Respiratory Ventilation, 24-96 Consecutive Hours, Continuous Positive Airway Pressure (ICD-10-PCS; 2018-04-14)
PROC: B32T1ZZ Computerized Tomography (CT Scan) of Left Pulmonary Artery using Low Osmolar Contrast (ICD-10-PCS; 2018-04-15)
PROC: B32S1ZZ Computerized Tomography (CT Scan) of Right Pulmonary Artery using Low Osmolar Contrast (ICD-10-PCS; 2018-04-15)
PROC: 5A09357 Assistance with Respiratory Ventilation, Less than 24 Consecutive Hours, Continuous Positive Airway Pressure (ICD-10-PCS; 2018-04-15)
PROC: 5A09357 Assistance with Respiratory Ventilation, Less than 24 Consecutive Hours, Continuous Positive Airway Pressure (ICD-10-PCS; 2018-04-16)
PROC: 5A09457 Assistance with Respiratory Ventilation, 24-96 Consecutive Hours, Continuous Positive Airway Pressure (ICD-10-PCS; 2018-04-17)
DX: M80.822A Other osteoporosis with current pathological fracture, left humerus, initial encounter for fracture (principal); J96.00 Acute respiratory failure, unspecified whether with hypoxia or hypercapnia; I21.A1 Myocardial infarction type 2; I50.31 Acute diastolic (congestive) heart failure; J18.9 Pneumonia, unspecified organism; K72.00 Acute and subacute hepatic failure without coma; N17.9 Acute kidney failure, unspecified; D62 Acute posthemorrhagic anemia; J44.1 Chronic obstructive pulmonary disease with (acute) exacerbation; G93.40 Encephalopathy, unspecified; J44.0 Chronic obstructive pulmonary disease with (acute) lower respiratory infection; I13.0 Hypertensive heart and chronic kidney disease with heart failure and stage 1 through stage 4 chronic kidney disease, or unspecified chronic kidney disease; E03.9 Hypothyroidism, unspecified; Y95 Nosocomial condition; E78.00 Pure hypercholesterolemia, unspecified; E78.5 Hyperlipidemia, unspecified; F17.210 Nicotine dependence, cigarettes, uncomplicated; F32.9 Major depressive disorder, single episode, unspecified; T46.2X5A Adverse effect of other antidysrhythmic drugs, initial encounter; T46.6X5A Adverse effect of antihyperlipidemic and antiarteriosclerotic drugs, initial encounter; M19.90 Unspecified osteoarthritis, unspecified site; E87.6 Hypokalemia; N18.3 Chronic kidney disease, stage 3 (moderate); I35.2 Nonrheumatic aortic (valve) stenosis with insufficiency; I48.0 Paroxysmal atrial fibrillation; W10.9XXA Fall (on) (from) unspecified stairs and steps, initial encounter; Z60.2 Problems related to living alone; Z78.1 Physical restraint status; Z79.01 Long term (current) use of anticoagulants; Z79.4 Long term (current) use of insulin; Z79.890 Hormone replacement therapy; Z79.899 Other long term (current) drug therapy; Z86.73 Personal history of transient ischemic attack (TIA), and cerebral infarction without residual deficits; Z91.040 Latex allergy status; Y93.89 Activity, other specified; Y92.098 Other place in other non-institutional residence as the place of occurrence of the external cause; Y99.8 Other external cause status
CPT/HCPCS: 29105; 36415; 36600; 70450; 71045; 71275; 73030; 76001; 80047; 80048; 80053; 81001; 82728; 82803; 82948; 83540; 83550; 83605; 83735; 83880; 84100; 84132; 84145; 84443; 84484; 85018; 85025; 85610; 85730; 86885; 86900; 86901; 86920; 87040; 87070; 87077; 87088; 87186; 92616; 93005; 93306; 94640; 94660; 94667; 94760; 96374; 97110; 97162; 97530; 99285; A4565; A6258; A7000; G0378; J0171; J0690; J0696; J1100; J1650; J1885; J1940; J1956; J2060; J2250; J2270; J2370; J2405; J2543; J2704; J2710; J2795; J2920; J2930; J3010; J3370; J3480; J3490; J7030; J7070; J7120; J7512; J8597; P9016; P9047; Q0163; Q9967

== ENCOUNTER 2018-04-21 20:22 | Inpatient (IN) | payer MEDICARE, OTHER ==
[~2018-04-21] VITALS: Ht 167.6 cm; Wt 90.0 kg
[~2018-04-21 20:22] MED LIST changes: +AMIO200T40 PO; -ATE25T PO; -CALC-729 PO; -CARCD120C PO; -COL100C PO; -CYAN50003 PO; -DIPH-423 PO; -ENOX30SY10 SUBCUT; +FURO-150 PO; +LISI-600 PO; -LORA0.5T PO; +LORA10TA7 PO; -MAG355OR PO; -MAGN-49 PO; +METO-395 PO; -NORCO10T PO; +NORepinephrine bitartrate 8 MG in NS 250 ML BAG (32 mcg/ml) IV ONE; +RIVA20TA PO; +ROPI0.252 PO; -ZOF4I IV; -ZOLP5TAB8 PO; -[UNRECOGNIZED DRUG - REMARK] MC; +epiNEPHrine 0.1mg/ml 10ml syringe ONE; +etomidate 2mg/ml inj. ONE; +rocuronium 10mg/ml inj IV ONE
[2018-04-21 21:28] LABS: BASOPHILS % (AUTO) 0 % (0-1); EOSINOPHILS # (AUTO) 0.4 X10'3 (0-0.9); EOSINOPHILS % (AUTO) 1.6 % (0-6); HEMATOCRIT 22.6 % (35.0-45.0); HEMOGLOBIN 7.2 g/dl (12.0-16.0); LYMPHOCYTES # (AUTO) 0.7 X10'3 (1.1-4.8); MEAN CORPUSCULAR HEMOGLOBIN 26.9 PG (27.0-31.0); MEAN CORPUSCULAR HGB CONC 31.6 % (33.0-36.5); MEAN CORPUSCULAR VOLUME 85.2 FL (78-98); MEAN PLATELET VOLUME 10.3 FL (7.4-10.4); MONOCYTES # (AUTO) 1.3 X10'3 (0-0.9); MONOCYTES % (AUTO) 5.7 % (2-12); NEUTROPHILS # (AUTO) 21.1 X10'3 (1.8-7.7); NEUTROPHILS % (AUTO) 89.7 % (42-75); PLATELET COUNT 359 X10'3 (140-440); RED BLOOD COUNT 2.66 X10'6 (4.20-5.60); WHITE BLOOD COUNT 23.5 X10'3 (4.5-11.0)
[2018-04-21 21:34] LABS: PROTHROMBIN TIME 15.1 SECONDS (9.0-12.0)
[2018-04-21 21:35] LABS: INR 1.5 INR; PARTIAL THROMBOPLASTIN TIME 29 SECONDS (22-32)
[2018-04-21 21:39] LABS: ALANINE AMINOTRANSFERASE 83 U/L (12-78); ALBUMIN 2.9 G/DL (3.4-5.0); ALBUMIN/GLOBULIN RATIO 0.9 (1.1-1.5); ALKALINE PHOSPHATASE 85 IU/L (46-116); ANION GAP 5 (8-16); ASPARTATE AMINO TRANSFERASE 22 U/L (10-37); BILIRUBIN,TOTAL 2.2 MG/DL (0.1-1.0); BLOOD UREA NITROGEN 58 MG/DL (7-18); BUN/CREATININE RATIO 31.9 (6.6-38.0); CALCIUM 8.4 MG/DL (8.5-10.1); CHLORIDE 100 MMOL/L (99-107); CREATININE 1.82 MG/DL (0.40-0.90); POTASSIUM 4.4 MMOL/L (3.5-5.1); SODIUM 142 MMOL/L (135-145); TOTAL CARBON DIOXIDE 36.7 MMOL/L (24-32); TOTAL PROTEIN 6.2 G/DL (6.4-8.2); TROPONIN I 0.05 NG/ML (0.0-0.05); eGFR 27 ML/MIN
[2018-04-21 21:41] LABS: GLUCOSE 519 MG/DL (70-104)
[2018-04-21] MEDS ORDERED: fentaNYL/PF 50MCG/1 ML 2ML syringe IV ONE (22:00)
[2018-04-21] MEDS ORDERED: midazolam 100mg in NS 100ml 100 ML IV SCH (22:00)
[2018-04-21 22:20] LABS: ABG BASE EXCESS 10.9 mmol/L (-2.0-3.0); ABG HCO3 36.3 mmol/L (22.0-26.0); ABG OXYGEN SATURATION 93.9 % (95-98); ABG PCO2 (T) 54.8 mmHg (32.0-45.0); ABG PH (T) 7.438 (7.350-7.450); ABG PO2 (T) 73.2 mmHg (83-108); ALLEN'S TEST Positive; FCOHb 1.2 % (0.5-1.5); FMetHb 0.3 % (0.3-1.12); FO2Hb 92.5 % (94-100); PATIENT TEMPERATURE 36.7; PEEP 5 cm H2O; RESPIRATORY RATE 16 b/min; RESPIRATORY RATE (OBSERVED) 16 b/min; TIDAL VOLUME 400 mL; TOTAL HEMOGLOBIN 7.8 G/dl (12.0-16.0)
[2018-04-21] MEDS ORDERED: normal saline 1000ML IV soln IV ONE (22:20)
[2018-04-21] MEDS ORDERED: normal saline 1000ml 1,000 ML IV SCH (22:22)
[2018-04-21] MEDS ORDERED: morphine 2 MG/ML inj. syringe IV PRN (22:25)
[2018-04-21] MEDS ORDERED: potassium Cl 20 mEq SR tablet PO PRN ×2 (22:25)
[2018-04-21] MEDS ORDERED: acetaminophen 650mg rectal suppository RC PRN (22:25)
[2018-04-21] MEDS ORDERED: fentaNYL/PF 50MCG/1 ML 2ML syringe IV PRN (22:25)
[2018-04-21] MEDS ORDERED: ondansetron/PF 4mg/2ml inj IV PRN (22:25)
[2018-04-21] MEDS ORDERED: ipratropium/albuterol 3ml nebule NEB PRN (22:25)
[2018-04-21] MEDS ORDERED: potassium Cl 40MEQ/NS 500ml 500 ML IV PRN ×2 (22:25)
[2018-04-21] MEDS: K, MAG and/or Phos replacement - Verify level? MC SCH (22:25)
[2018-04-21] MEDS ORDERED: morphine 4 MG/ML inj SYRINge IV PRN (22:25)
[2018-04-21] MEDS ORDERED: acetaminophen 325mg tablet PO PRN ×2 (22:25)
[2018-04-21 22:34] LABS: ANISOCYTOSIS 3+; NUCLEATED RED BLOOD CELLS 4 /100WBC (0-0); PLATELET ESTIMATE NORMAL; TOTAL CELLS COUNTED 100
[2018-04-21 22:36] LABS: POLYCHROMASIA 1+; TARGET CELLS FEW
[2018-04-22] VITALS (22 sets, daily range): BP systolic 54–154; BP diastolic 33–83
[2018-04-22] MEDS ORDERED: dextrose 50%-water 50ml dispensing syringe IV PRN ×3 (00:15→14:25)
[2018-04-22 00:26] LABS: CLARITY,URINE CLEAR (Clear); COLOR,URINE YELLOW (Yellow); GLUCOSE, URINE 500 mg/dl (Neg); KETONES,URINE NEGATIVE (Neg); LEUKOCYTE ESTERASE ,URINE NEGATIVE (Neg); NITRITES, URINE NEGATIVE (Neg); OCCULT BLOOD,URINE SMALL (Neg); PH,URINE 7.5 (4.8-8.0); PROTEIN,URINE NEGATIVE (Neg); UROBILINOGEN,URINE 0.2 E.U/dL (0.2-1.0)
[2018-04-22 00:27] LABS: UA COLLECTION TYPE FOLEY CATH
[2018-04-22 01:03] LABS: BACTERIA,URINE NONE SEEN /HPF (Neg); MUCUS STRANDS NONE SEEN /LPF (Neg); RBC,URINE NONE SEEN /HPF (0-2); SQUAMOUS EPITHELIAL CELL,UR FEW /LPF (FEW); WBC,URINE NONE SEEN /HPF (0-4); YEAST MANY /HPF (NEGATIVE)
[2018-04-22] MEDS ORDERED: furosemide 10 MG/1 ML 10ml inj IV ONE ×2 (01:05→03:30)
[2018-04-22] MEDS: insulin regular, human 100 UNIT in normal saline 100ml IV soln 99 ML IV SCH ×4 (01:27→07:09)
[2018-04-22 01:39] LABS: ALBUMIN 2.6 G/DL (3.4-5.0); CHLORIDE 107 MMOL/L (99-107); POTASSIUM 4.2 MMOL/L (3.5-5.1); SODIUM 143 MMOL/L (135-145)
[2018-04-22 01:43] LABS: ANION GAP 6 (8-16); BLOOD UREA NITROGEN 52 MG/DL (7-18); BUN/CREATININE RATIO 32.7 (6.6-38.0); CALCIUM 7.4 MG/DL (8.5-10.1); CREATININE 1.59 MG/DL (0.40-0.90); GLUCOSE 430 MG/DL (70-104); TOTAL CARBON DIOXIDE 30.2 MMOL/L (24-32); eGFR 31 ML/MIN
[2018-04-22 01:44] LABS: ALANINE AMINOTRANSFERASE 73 U/L (12-78); ALBUMIN/GLOBULIN RATIO 0.9 (1.1-1.5); ALKALINE PHOSPHATASE 87 IU/L (46-116); ASPARTATE AMINO TRANSFERASE 30 U/L (10-37); BILIRUBIN,TOTAL 2.2 MG/DL (0.1-1.0); MAGNESIUM 2.4 MG/DL (1.5-2.4); TOTAL PROTEIN 5.5 G/DL (6.4-8.2)
[2018-04-22] MEDS: NORepinephrine 8mg/ 250ml NS 250 ML IV SCH ×2 (02:04→16:46)
[2018-04-22 04:11] LABS: ABG BASE EXCESS 5.7 mmol/L (-2.0-3.0); ABG HCO3 31.1 mmol/L (22.0-26.0); ABG OXYGEN SATURATION 99.3 % (95-98); ABG PCO2 (T) 52.3 mmHg (32.0-45.0); ABG PH (T) 7.395 (7.350-7.450); ABG PO2 (T) 267.5 mmHg (83-108); ALLEN'S TEST Positive; FCOHb 1.2 % (0.5-1.5); FMetHb 0.1 % (0.3-1.12); PATIENT TEMPERATURE 37.5; PEEP 8 cm H2O; RESPIRATORY RATE 18 b/min; TIDAL VOLUME 400 mL; TOTAL HEMOGLOBIN 7.4 G/dl (12.0-16.0)
[2018-04-22] MEDS: piperacillin/tazo 3.375gm/50ml 50 ML IV SCH ×4 (04:12→20:11)
[2018-04-22 05:01] LABS: BASOPHILS # (AUTO) 0.1 X10'3 (0-0.2); BASOPHILS % (AUTO) 0.3 % (0-1); EOSINOPHILS # (AUTO) 0.7 X10'3 (0-0.9); EOSINOPHILS % (AUTO) 2.3 % (0-6); LYMPHOCYTES # (AUTO) 1.4 X10'3 (1.1-4.8); LYMPHOCYTES % (AUTO) 4.5 % (21-51); MEAN CORPUSCULAR HEMOGLOBIN 27.1 PG (27.0-31.0); MEAN CORPUSCULAR HGB CONC 31.4 % (33.0-36.5); MEAN CORPUSCULAR VOLUME 86.2 FL (78-98); MEAN PLATELET VOLUME 9.4 FL (7.4-10.4); MONOCYTES # (AUTO) 1.6 X10'3 (0-0.9); MONOCYTES % (AUTO) 5.3 % (2-12); NEUTROPHILS # (AUTO) 26.3 X10'3 (1.8-7.7); NEUTROPHILS % (AUTO) 87.6 % (42-75); PLATELET COUNT 359 X10'3 (140-440); RED BLOOD COUNT 2.47 X10'6 (4.20-5.60); RED CELL DISTRIBUTION WIDTH 21.2 % (11.5-14.5)
[2018-04-22 05:14] LABS: HEMOGLOBIN 6.7 g/dl (12.0-16.0)
[2018-04-22 05:15] LABS: HEMATOCRIT 21.3 % (35.0-45.0)
[2018-04-22 06:39] LABS: ANISOCYTOSIS 3+; NUCLEATED RED BLOOD CELLS 6 /100WBC (0-0); PLATELET ESTIMATE NORMAL; TOTAL CELLS COUNTED 100
[2018-04-22 06:40] LABS: POLYCHROMASIA 3+; TARGET CELLS 1+
[2018-04-22] MEDS: K, MAG and/or Phos replacement - Verify level? MC SCH (08:00)
[2018-04-22] MEDS: midazolam 100mg in NS 100ml 100 ML IV PRN ×2 (08:21→17:54)
[2018-04-22] MEDS: pantoprazole 40 MG vial IV SCH (08:31)
[2018-04-22] MEDS ORDERED: furosemide inj 100 MG in normal saline 100ml IV soln 90 ML IV SCH (08:45)
[2018-04-22 09:39] LABS: ALANINE AMINOTRANSFERASE 72 U/L (12-78); ALBUMIN 2.7 G/DL (3.4-5.0); ALBUMIN/GLOBULIN RATIO 0.9 (1.1-1.5); ALKALINE PHOSPHATASE 88 IU/L (46-116); ANION GAP 7 (8-16); ASPARTATE AMINO TRANSFERASE 27 U/L (10-37); BILIRUBIN,TOTAL 2.1 MG/DL (0.1-1.0); BLOOD UREA NITROGEN 53 MG/DL (7-18); CALCIUM 8.1 MG/DL (8.5-10.1); CHLORIDE 108 MMOL/L (99-107); CREATININE 1.56 MG/DL (0.40-0.90); GLUCOSE 142 MG/DL (70-104); POTASSIUM 3.9 MMOL/L (3.5-5.1); SODIUM 147 MMOL/L (135-145); TOTAL CARBON DIOXIDE 32.4 MMOL/L (24-32); TOTAL PROTEIN 5.8 G/DL (6.4-8.2); eGFR 32 ML/MIN
[2018-04-22 09:41] LABS: CLARITY,URINE CLEAR (Clear); COLOR,URINE YELLOW (Yellow); GLUCOSE, URINE NEGATIVE (Neg); KETONES,URINE NEGATIVE (Neg); LEUKOCYTE ESTERASE ,URINE TRACE (Neg); NITRITES, URINE NEGATIVE (Neg); OCCULT BLOOD,URINE MODERATE (Neg); PROTEIN,URINE TRACE mg/dl (Neg); UROBILINOGEN,URINE 0.2 E.U/dL (0.2-1.0)
[2018-04-22 09:48] LABS: UA COLLECTION TYPE FOLEY CATH
[2018-04-22 09:49] LABS: BACTERIA,URINE FEW /HPF (Neg); MUCUS STRANDS NONE SEEN /LPF (Neg); RBC,URINE 0-2 /HPF (0-2); SQUAMOUS EPITHELIAL CELL,UR FEW /LPF (FEW); YEAST MODERATE /HPF (NEGATIVE)
[2018-04-22] MEDS: levoFLOXACIN-Levaquin 500mg/D5 100 ML IV SCH (12:25)
[2018-04-22] MEDS ORDERED: glucagon, human recombinant 1mg kit SUBCUT PRN (14:25)
[2018-04-22] MEDS ORDERED: dextrose ORAL solution 15 GM/59 ML bottle PO PRN ×2 (14:25)
[2018-04-22] MEDS ORDERED: MESSAGE TO PHARMACY PO ONE (14:25)
[2018-04-22 15:13] LABS: ALBUMIN 2.6 G/DL (3.4-5.0); ANION GAP 13 (8-16); BLOOD UREA NITROGEN 58 MG/DL (7-18); CHLORIDE 104 MMOL/L (99-107); CREATININE 1.76 MG/DL (0.40-0.90); GLUCOSE 376 MG/DL (70-104); MAGNESIUM 2.4 MG/DL (1.5-2.4); PHOSPHORUS 4.8 MG/DL (2.3-4.5); POTASSIUM 4.3 MMOL/L (3.5-5.1); SODIUM 145 MMOL/L (135-145); TOTAL CARBON DIOXIDE 28.4 MMOL/L (24-32); eGFR 28 ML/MIN
[2018-04-22] MEDS: insulin regular, human vial - multi-dose SQ SCH ×2 (15:25→20:19)
[2018-04-22] MEDS ORDERED: amiodarone 150mg/dext, iso-os 100 ML IV ONE (17:10)
[2018-04-22] MEDS: amiodarone/D5 360MG/200ML BAG 200 ML IV SCH ×2 (17:53→23:33)
[2018-04-22] MEDS ORDERED: insulin glargine (Lantus) pen - multi-dose SQ SCH (21:00)
[2018-04-22 21:25] LABS: HEMATOCRIT 30.7 % (35.0-45.0); MEAN CORPUSCULAR HGB CONC 32.4 % (33.0-36.5); MEAN CORPUSCULAR VOLUME 86.2 FL (78-98); MEAN PLATELET VOLUME 9.5 FL (7.4-10.4); PLATELET COUNT 321 X10'3 (140-440); RED BLOOD COUNT 3.56 X10'6 (4.20-5.60); RED CELL DISTRIBUTION WIDTH 18.3 % (11.5-14.5)
[2018-04-22 21:46] LABS: ALBUMIN 2.6 G/DL (3.4-5.0); ANION GAP 8 (8-16); BLOOD UREA NITROGEN 53 MG/DL (7-18); BUN/CREATININE RATIO 30.8 (6.6-38.0); CALCIUM 8.3 MG/DL (8.5-10.1); CHLORIDE 107 MMOL/L (99-107); CREATININE 1.72 MG/DL (0.40-0.90); GLUCOSE 300 MG/DL (70-104); MAGNESIUM 2.5 MG/DL (1.5-2.4); PHOSPHORUS 3.9 MG/DL (2.3-4.5); SODIUM 146 MMOL/L (135-145); TOTAL CARBON DIOXIDE 31.3 MMOL/L (24-32); eGFR 29 ML/MIN
[2018-04-22 22:24] LABS: WHITE BLOOD COUNT 26.5 X10'3 (4.5-11.0)
[2018-04-23] VITALS (20 sets, daily range): BP systolic 55–127; BP diastolic 37–66
[2018-04-23] MEDS: NORepinephrine 8mg/ 250ml NS 250 ML IV SCH ×2 (00:23→09:58)
[2018-04-23] MEDS: piperacillin/tazo 3.375gm/50ml 50 ML IV SCH ×3 (02:25→14:00)
[2018-04-23] MEDS: insulin regular, human vial - multi-dose SQ SCH ×2 (02:47→08:13)
[2018-04-23] MEDS: mineral oil/petrolatum ophthal oint EACHEYE SCH ×3 (02:59→14:00)
[2018-04-23 03:01] LABS: ABG BASE EXCESS 5.9 mmol/L (-2.0-3.0); ABG HCO3 30.9 mmol/L (22.0-26.0); ABG PCO2 (T) 48.3 mmHg (32.0-45.0); ABG PH (T) 7.427 (7.350-7.450); ABG PO2 (T) 73.7 mmHg (83-108); ALLEN'S TEST Positive; FCOHb 0.9 % (0.5-1.5); FMetHb 0.1 % (0.3-1.12); FO2Hb 93.1 % (94-100); MINUTE VOLUME 8 L/min; PATIENT TEMPERATURE 37.7; PEEP 8 cm H2O; RESPIRATORY RATE 18 b/min; RESPIRATORY RATE (OBSERVED) 19 b/min; TIDAL VOLUME 400 mL; TOTAL HEMOGLOBIN 10.3 G/dl (12.0-16.0)
[2018-04-23 03:49] LABS: ALANINE AMINOTRANSFERASE 61 U/L (12-78); ALBUMIN 2.4 G/DL (3.4-5.0); ALBUMIN/GLOBULIN RATIO 0.8 (1.1-1.5); ALKALINE PHOSPHATASE 76 IU/L (46-116); ANION GAP 5 (8-16); ASPARTATE AMINO TRANSFERASE 28 U/L (10-37); BILIRUBIN,TOTAL 2.3 MG/DL (0.1-1.0); BLOOD UREA NITROGEN 55 MG/DL (7-18); BUN/CREATININE RATIO 32.5 (6.6-38.0); CALCIUM 8.1 MG/DL (8.5-10.1); CHLORIDE 107 MMOL/L (99-107); CREATININE 1.69 MG/DL (0.40-0.90); GLUCOSE 241 MG/DL (70-104); MAGNESIUM 2.4 MG/DL (1.5-2.4); PHOSPHORUS 3.8 MG/DL (2.3-4.5); POTASSIUM 3.6 MMOL/L (3.5-5.1); PREALBUMIN 21.9 MG/DL (19-36); SODIUM 145 MMOL/L (135-145); TOTAL CARBON DIOXIDE 32.8 MMOL/L (24-32); TOTAL PROTEIN 5.5 G/DL (6.4-8.2); eGFR 29 ML/MIN
[2018-04-23 03:58] LABS: HEMATOCRIT 30.6 % (35.0-45.0); HEMOGLOBIN 9.7 g/dl (12.0-16.0); MEAN CORPUSCULAR HEMOGLOBIN 28.2 PG (27.0-31.0); MEAN CORPUSCULAR HGB CONC 31.8 % (33.0-36.5); MEAN CORPUSCULAR VOLUME 88.6 FL (78-98); MEAN PLATELET VOLUME 10.2 FL (7.4-10.4); PLATELET COUNT 313 X10'3 (140-440); RED BLOOD COUNT 3.46 X10'6 (4.20-5.60); RED CELL DISTRIBUTION WIDTH 18.4 % (11.5-14.5)
[2018-04-23 04:49] LABS: NUCLEATED RED BLOOD CELLS 7 /100WBC (0-0); TOTAL CELLS COUNTED 100
[2018-04-23 04:53] LABS: ANISOCYTOSIS 2+; PLATELET ESTIMATE NORMAL; WHITE BLOOD COUNT 27.3 X10'3 (4.5-11.0)
[2018-04-23 04:55] LABS: POLYCHROMASIA 2+; SMUDGE CELLS 2+
[2018-04-23 04:57] LABS: TOXIC GRANULATION 1+
[2018-04-23 05:51] LABS: ALBUMIN 2.3 G/DL (3.4-5.0); ANION GAP 7 (8-16); BLOOD UREA NITROGEN 51 MG/DL (7-18); BUN/CREATININE RATIO 28.7 (6.6-38.0); CALCIUM 8.1 MG/DL (8.5-10.1); CHLORIDE 105 MMOL/L (99-107); CREATININE 1.78 MG/DL (0.40-0.90); GLUCOSE 256 MG/DL (70-104); MAGNESIUM 2.3 MG/DL (1.5-2.4); PHOSPHORUS 3.6 MG/DL (2.3-4.5); POTASSIUM 3.4 MMOL/L (3.5-5.1); SODIUM 144 MMOL/L (135-145); TOTAL CARBON DIOXIDE 32.1 MMOL/L (24-32); eGFR 27 ML/MIN
[2018-04-23] MEDS ORDERED: METH125V13 IVP (07:11)
[2018-04-23] MEDS: pantoprazole 40 MG vial IV SCH (07:56)
[2018-04-23] MEDS: K, MAG and/or Phos replacement - Verify level? MC SCH (07:57)
[2018-04-23] MEDS: levoFLOXACIN-Levaquin 500mg/D5 100 ML IV SCH (08:48)
[2018-04-23] MEDS ORDERED: potassium Cl 40MEQ/250ML bag 250 ML IV PRN ×2 (09:10)
[2018-04-23] MEDS: midazolam 100mg in NS 100ml 100 ML IV PRN (10:58)
[2018-04-23] MEDS: amiodarone/D5 360MG/200ML BAG 200 ML IV SCH (11:46)
[2018-04-23] MEDS ORDERED: micafungin inj 100 MG in normal saline 100ml IV soln 100 ML IV SCH (11:55)
[2018-04-23] MEDS ORDERED: FENTANYL-0.9 % NACL/PF 100 ML IV PRN (15:27)
[2018-04-23 15:28] LABS: ALBUMIN 2.2 G/DL (3.4-5.0); ANION GAP 7 (8-16); BLOOD UREA NITROGEN 48 MG/DL (7-18); BUN/CREATININE RATIO 30.6 (6.6-38.0); CALCIUM 7.9 MG/DL (8.5-10.1); CHLORIDE 107 MMOL/L (99-107); CREATININE 1.57 MG/DL (0.40-0.90); GLUCOSE 204 MG/DL (70-104); MAGNESIUM 2.2 MG/DL (1.5-2.4); PHOSPHORUS 3.6 MG/DL (2.3-4.5); POTASSIUM 4.1 MMOL/L (3.5-5.1); SODIUM 145 MMOL/L (135-145); eGFR 32 ML/MIN
[2018-04-23] MEDS ORDERED: fentaNYL/PF 50MCG/1 ML 2ML syringe IV PRN (15:30)
[2018-04-23] MEDS ORDERED: PANT20TA3 PO (15:34)
[2018-04-23] MEDS ORDERED: POTA20PA40 PO (15:35)
[2018-04-23] MEDS ORDERED: LACT1CAP65 PO (15:36)
[2018-04-23] MEDS ORDERED: ALB0.5UD IH (15:37)
[2018-04-23] MEDS ORDERED: ATRIN IH (15:38)
== END 2018-04-24 00:20 | disposition expired | DRG 871 ==
LOC: ER 20:23 → ED HOLD 22:22 → ICU 2S 04-22 10:32
PROVIDERS: ADMIT Emergency Medicine; ATTEND Internal Medicine Critical Care Medicine
PROC: 5A1945Z Respiratory Ventilation, 24-96 Consecutive Hours (ICD-10-PCS; principal; 2018-04-21)
PROC: 0BH17EZ Insertion of Endotracheal Airway into Trachea, Via Natural or Artificial Opening (ICD-10-PCS; 2018-04-21)
PROC: 06HY33Z Insertion of Infusion Device into Lower Vein, Percutaneous Approach (ICD-10-PCS; 2018-04-21)
PROC: 30233N1 Transfusion of Nonautologous Red Blood Cells into Peripheral Vein, Percutaneous Approach (ICD-10-PCS; 2018-04-22)
PROC: 0D9670Z Drainage of Stomach with Drainage Device, Via Natural or Artificial Opening (ICD-10-PCS; 2018-04-22)
DX: B37.7 Candidal sepsis (principal); J96.01 Acute respiratory failure with hypoxia; J81.0 Acute pulmonary edema; R65.21 Severe sepsis with septic shock; J18.9 Pneumonia, unspecified organism; J96.02 Acute respiratory failure with hypercapnia; N17.9 Acute kidney failure, unspecified; E78.00 Pure hypercholesterolemia, unspecified; I08.0 Rheumatic disorders of both mitral and aortic valves; I12.9 Hypertensive chronic kidney disease with stage 1 through stage 4 chronic kidney disease, or unspecified chronic kidney disease; N18.3 Chronic kidney disease, stage 3 (moderate); M19.90 Unspecified osteoarthritis, unspecified site; Y95 Nosocomial condition; Z60.2 Problems related to living alone; Z51.5 Encounter for palliative care; Z66 Do not resuscitate; Z91.040 Latex allergy status; Z79.899 Other long term (current) drug therapy; Z87.891 Personal history of nicotine dependence; S42.302D Unspecified fracture of shaft of humerus, left arm, subsequent encounter for fracture with routine healing
CPT/HCPCS: 36415; 36600; 71045; 80053; 80069; 81001; 81003; 82803; 82948; 83036; 83605; 83735; 83880; 84100; 84134; 84145; 84484; 85018; 85025; 85027; 85610; 85730; 86885; 86900; 86901; 86920; 87040; 87070; 87088; 94003; 94760; 96360; 99291; C9113; G0378; J0171; J0282; J1815; J1940; J1956; J2248; J2250; J2270; J2543; J3010; J3480; J3490; J7030; P9016